=== PATIENT | male | born 1965 | race Caucasian/White ===

== ENCOUNTER 2019-09-24 15:21 | Outpatient (CLI) | payer OTHER, SELFPAY ==
--- NOTE | ~2019-09-24 | XR_ITS ---
XR cervical spine 4-5V DATE: 09/24/2019 15:46 INDICATION: Right neck pain for one month. No injury. TECHNIQUE: AP, open-mouth, lateral, swimmer views COMPARISON: None FINDINGS: There is straightening of the cervical spine. There is mild anterolisthesis at C3-4. There is mild to moderate loss of interspace height at C5-6. Remaining cervical interspaces are prese rved. C1 and C2 are normally aligned and the odontoid process is intact. No fracture or dislocation or lock ed facet or prevertebral soft tissue swelling. IMPRESSION: Straightening of the cervical spine Mild anterolisthesis at C3-4 Moderate loss of interspace height at C5-6 Reviewed, dictated and finalized at location A.
== END 2019-09-24 15:22 | disposition home or self-care (01) ==
LOC: ANHIMG 15:27
PROVIDERS: PCP Family Medicine; Visit Provider Family Medicine
DX: M47.22 Other spondylosis with radiculopathy, cervical region (principal)
CPT/HCPCS: 72050

== ENCOUNTER → 2021-03-18 08:36 | Outpatient (CLI) | payer OTHER, SELFPAY ==
[2021-03-19 16:24] LABS: SARS-CoV-2 RNA PCR Positive
== END ==
PROVIDERS: PCP Internal Medicine
DX: U07.1 COVID-19 (principal)
CPT/HCPCS: C9803; U0003; U0005

== ENCOUNTER 2023-06-28 01:14 | Day surgery (SDC) | payer OTHER, SELFPAY ==
[2023-06-19 12:23] VITALS: BMI 28.8
[2023-06-28 09:47] VITALS: BP 125/72; PULSE 65; RESP 18; TEMP 36.2; O2SAT 100
[2023-06-28] MEDS: LACTATED RINGERS 1,000 ML 150 ML IV CONT (10:00)
--- NOTE | 2023-06-28 10:28 | WPDANESEPPF ---
Anes - Initial Pre Proc Eval Procedure: Operation Date: 06/28/23 11:00 Proposed Procedures p Esophagogastroduodenoscopy & Screening Colonoscopy - Jose Carlos Poe MD Date/Time: 06/28/23 10:28 Surgeon: Jose Carlos Poe MD Pre Op Diagnosis: GERD, Hx colon polyps Patient Data Age: 57 Gender: M Height: 1.78 m Weight: 88.5 kg Last Vital Signs Temp 97.2 F L 06/28/23 09:47 Pulse 65 06/28/23 09:47 Resp 18 06/28/23 09:47 BP 125/72 06/28/23 09:47 Pulse Ox 100 06/28/23 09:47 O2 Del Method Room Air 06/28/23 09:47 Allergies Allergy/AdvReac Type Severity Reaction Status Date / Time latex Allergy Rash Verified 06/28/23 09:46 Home Medications Medication Instructions Recorded Confirmed Type dutasteride 0.5 mg capsule 0.5 mg PO DAILY 09/24/19 06/19/23 History ezetimibe 10 mg tablet 10 mg PO DAILY #90 tabs 09/24/19 06/19/23 Rx lisinopril 10 mg tablet 10 mg PO DAILY #90 tabs 09/24/19 06/19/23 Rx tamsulosin 0.4 mg capsule 0.4 mg PO DAILY 09/24/19 06/19/23 History Patient hx anesthesia problems: none Family hx anesthesia problems: none Results Review: All pre-operative results and documents have been reviewed as part of the pre-operative evaluation. 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 Benign essential HTN BPH (benign prostatic hyperplasia) Mixed hyperlipidemia Surgical History Surgical History (Updated 09/24/19 @ 14:46 by Sadie Saleh MD) S/P right knee arthroscopy Family History Family History (Updated 09/24/19 @ 14:45 by Sadie Saleh MD) Mother CLL (chronic lymphocytic leukemia) Social History Social History (Updated 09/24/19 @ 14:04 by Corrie Lundberg) Smoking packs per day: 0.5 Smoking cigarettes per day: 10.0 Years smoked: 25 Smoking pack-years: 12.50 Smoking status: Former smoker Tobacco type: cigarettes Second hand tobacco smoke exposure: No Smoking end date: 03/30/15 Alcohol intake: never Substance use: never Substance use type: does not use Living arrangements: with family Additional living arrangements comments: pt lives with spouse and grandson Occupation/Education: occupation Gender identity (if verbalized by the patient): Male Sexual Orientation (if Verbalized by the Patient): Straight or Heterosexual Spiritual care concerns: No Anes - Eval Final PreProcedure Day of Procedure 06/28/23 10:28 Patient weight: normal Heart: regular rate and rhythm Lungs: clear to auscultation Airway: Mallampati scale class II Neurological: alert and oriented Last oral intake: >/= 8 hours ASA classification: III Emergent: no Anesthetic plan: proceed Anesthesia type and monitoring: general GIVS and standard monitoring Results Review: All pre-operative results and documents have been reviewed as part of the pre-operative evaluation. Informed Consent: The patient's anesthetic plan and its attendant risks and benefits were discussed with the patient/family/POA. Questions were solicited and answers provided to the satisfaction of the patient/family/POA.
--- NOTE | 2023-06-28 10:40 | PM.HPGS ---
History of Present Illness History of Present Illness Consent: Risks, benefits, and alternatives have been discussed and questions answered. Patient agrees to proceed with procedure. Chief complaint: GERD, Hx colon polyps Narrative: Nirmal Patrick is a 57 year old male with gerd but he is not taking any meds, never had EGD. Colon polyps with last colonoscopy 3 years ago, sister had colon cancer. Review of Systems Review of Systems: All systems reviewed & are unremarkable except as noted in HPI and below PMFSH Past Medical History Medical History (Updated 06/28/23 @ 10:44 by Jose Carlos Poe MD) ADD (attention deficit disorder) without hyperactivity Adenomatous colon polyp Benign essential HTN BPH (benign prostatic hyperplasia) Family history of colon cancer GERD (gastroesophageal reflux disease) Mixed hyperlipidemia Surgical History Surgical History (Updated 09/24/19 @ 14:46 by Sadie Saleh MD) S/P right knee arthroscopy Family History Family History (Updated 09/24/19 @ 14:45 by Sadie Saleh MD) Mother CLL (chronic lymphocytic leukemia) Social History Social History (Updated 09/24/19 @ 14:04 by Corrie Lundberg) Smoking packs per day: 0.5 Smoking cigarettes per day: 10.0 Years smoked: 25 Smoking pack-years: 12.50 Smoking status: Former smoker Tobacco type: cigarettes Second hand tobacco smoke exposure: No Smoking end date: 03/30/15 Alcohol intake: never Substance use: never Substance use type: does not use Living arrangements: with family Additional living arrangements comments: pt lives with spouse and grandson Occupation/Education: occupation Gender identity (if verbalized by the patient): Male Sexual Orientation (if Verbalized by the Patient): Straight or Heterosexual Spiritual care concerns: No Meds Home Medications and Allergies Home Medications Medication Instructions Recorded Confirmed Type dutasteride 0.5 mg capsule 0.5 mg PO DAILY 09/24/19 06/19/23 History ezetimibe 10 mg tablet 10 mg PO DAILY #90 tabs 09/24/19 06/19/23 Rx lisinopril 10 mg tablet 10 mg PO DAILY #90 tabs 09/24/19 06/19/23 Rx tamsulosin 0.4 mg capsule 0.4 mg PO DAILY 09/24/19 06/19/23 History Allergies Allergy/AdvReac Type Severity Reaction Status Date / Time latex Allergy Rash Verified 06/28/23 09:46 Vital Signs Vital Signs - 24 hr 06/28/23 09:47 Temperature 97.2 F L Pulse Rate 65 Respiratory Rate 18 Blood Pressure 125/72 Pulse Oximetry 100 Oxygen Delivery Room Air Exam Const: General: comfortable and no acute distress HENMT: Face/Nose/Sinus: Normal nares present Eyes: General: appearance normal, both eyes and all related structures Neck: Neck: no JVD Resp: Auscultation: clear to auscultation bilaterally Cardio: Rate: regular rate Rhythm: regular rhythm GI: Inspection: non-distended GI Palp: Yes Soft to palpation Skin: General skin exam: normal color Neuro: General: gait normal Speech: normal speech Extrem: General: normal to inspection Psych: Mental Status: mental status grossly normal Assessment and Plan Assessment and plan (1) GERD (gastroesophageal reflux disease): Code(s): K21.9 - Gastro-esophageal reflux disease without esophagitis Status: Acute Assessment and Plan: egd with bx (2) Adenomatous colon polyp: Code(s): D12.6 - Benign neoplasm of colon, unspecified Status: Acute Assessment and Plan: colonoscopy (3) Family history of colon cancer: Code(s): Z80.0 - Family history of malignant neoplasm of digestive organs Status: Acute
--- NOTE | 2023-06-28 10:57 | SUR.OPER ---
egd ended at 1051 and colonoscopy started at 105
[2023-06-28 11:57] VITALS: BP 123/69; PULSE 65; RESP 18; O2SAT 99
[2023-06-28 12:07] VITALS: BP 138/66; PULSE 57; RESP 14; O2SAT 100
[2023-06-28 12:17] VITALS: BP 126/67; PULSE 62; RESP 22; O2SAT 100
== END 2023-06-28 12:33 | disposition home or self-care (01) ==
PROVIDERS: PCP Internal Medicine; Visit Provider Internal Medicine Gastroenterology
PROC: 0DJ08ZZ Inspection of Upper Intestinal Tract, Via Natural or Artificial Opening Endoscopic (ICD-10-PCS; CPT 43235; principal; 2023-06-28 11:00)
DX: Z12.11 Encounter for screening for malignant neoplasm of colon (principal); D12.2 Benign neoplasm of ascending colon; D12.3 Benign neoplasm of transverse colon; D12.5 Benign neoplasm of sigmoid colon; K57.30 Diverticulosis of large intestine without perforation or abscess without bleeding; K64.8 Other hemorrhoids; K21.9 Gastro-esophageal reflux disease without esophagitis; K29.50 Unspecified chronic gastritis without bleeding; I10 Essential (primary) hypertension; E78.2 Mixed hyperlipidemia; N40.0 Benign prostatic hyperplasia without lower urinary tract symptoms; Z87.891 Personal history of nicotine dependence; Z80.0 Family history of malignant neoplasm of digestive organs
CPT/HCPCS: 45380; 45385; 45381; 43239; 88305; J2704; J7120